=== PATIENT | female | born 1975 | race Caucasian/White ===

== ENCOUNTER 2018-07-13 03:45 | Emergency (ER) | payer OTHER ==
[2018-07-13 03:54] VITALS: RESP 18
--- NOTE | 2018-07-13 04:38 | XR ---
EXAMINATION TYPE: XR knee 4V LT DATE OF EXAM: 07/13/2018 COMPARISON: NONE HISTORY: Knee pain TECHNIQUE: 4 views FINDINGS: I see no fracture nor dislocation. Joint spaces are normal. There is no sign of knee joint effusion. IMPRESSION: Negative left knee exam.
--- NOTE | 2018-07-13 04:44 | ED ---
Lower Extremity Injury HPI - General Chief Complaint: Extremity Injury, Lower Stated Complaint: [facility] knee injury Time Seen by Provider: 07/13/18 03:56 Source: patient Mode of arrival: ambulatory Limitations: no limitations - History of Present Illness Initial Comments: This patient is a 43-year-old woman who presents to have evaluation of her left knee. The patient had been at work tonight, and she was in the process of lifting parts and turning, when she felt pain in her knee. She believes that she "twisted it." The patient states that she does have some pain with flexing her leg. She is able to bear weight. No previous surgery or injury to the knee. MD Complaint: knee injury Onset/Timin -: hour(s) Injury: Knee: Left Type of Injury: other ("twisited") Place: work Severity: moderate Improves With: nothing Worsens With: weight bearing, movement Context: other - Related Data Home Medications Medication Instructions Recorded Confirmed No Known Home Medications 07/13/18 07/13/18 Allergies Allergy/AdvReac Type Severity Reaction Status Date / Time No Known Allergies Allergy Verified 07/13/18 03:54 Review of Systems ROS Statement: Those systems with pertinent positive or pertinent negative responses have been documented in the HPI. ROS Other: All systems not noted in ROS Statement are negative. Constitutional: Denies: fever, chills, weakness Gastrointestinal: Denies: abdominal pain Musculoskeletal: Reports: as per HPI, arthralgia. Denies: back pain, myalgia Skin: Denies: rash Neurological: Denies: weakness, numbness, paresthesias Past Medical History Past Medical History: No Reported History History of Any Multi-Drug Resistant Organisms: None Reported Past Surgical History: Section Past Psychological History: No Psychological Hx Reported Smoking Status: Never smoker Past Alcohol Use History: None Reported Past Drug Use History: None Reported General Exam Limitations: no limitations General appearance: alert, in no apparent distress Cardiovascular Exam: Present: other (Intact pedal pulses) Extremities exam: Present: normal inspection, normal capillary refill. Absent: pedal edema, calf tenderness Left Hip exam: Present: full ROM Upper Leg exam: Present: normal inspection, full ROM. Absent: tenderness, swelling Knee exam: Present: full ROM, tenderness, pain/laxity with varus, full knee extension. Absent: swelling, abrasion, laceration, ecchymosis, deformity, crepitus, dislocation, effusion, pain w/ pronation/supination, posterior draw sign, pain/laxity with valgus Lower Leg exam: Present: normal inspection, full ROM. Absent: tenderness, swelling, abrasion Ankle exam: Present: normal inspection, full ROM. Absent: tenderness Foot/Toe exam: Present: normal inspection, full ROM. Absent: tenderness Neurovascular tendon exam: Present: no vascular compromise. Absent: motor deficit, sensory deficit Neurological exam: Present: alert. Absent: motor sensory deficit Skin exam: Present: warm, dry, intact, normal color. Absent: rash Course Vital Signs 07/13/18 03:51 Temperature 98.4 F Pulse Rate 72 Respiratory 18 Rate Blood Pressure 143/80 O2 Sat by Pulse 100 Oximetry Disposition Clinical Impression: Knee sprain Disposition: HOME SELF-CARE Condition: Good Instructions: Knee Sprain (ED) Is patient prescribed a controlled substance at d/c from ED?: No Referrals: Arnie Grant MD [Primary Care Provider] - 1-2 days
[2018-07-13 05:01] VITALS: BP 143/56; PULSE 78; TEMP 97.7
== END 2018-07-13 05:00 | disposition home or self-care (01) ==
LOC: EC 03:45
DX: S83.92XA Sprain of unspecified site of left knee, initial encounter (principal); X50.1XXA Overexertion from prolonged static or awkward postures, initial encounter; Y99.0 Civilian activity done for income or pay
CPT/HCPCS: 99283